=== PATIENT | female | born 1945 | race Asian ===

== ENCOUNTER 2019-08-17 22:38 | Emergency (ER) | payer OTHER ==
[~2019-08-17] VITALS: Ht 162.6 cm; Wt 55.3 kg
[2019-08-17 22:48] VITALS: Ht 162.6 cm; Wt 55.3 kg
[2019-08-17 23:37] VITALS: BP 166/61
[2019-08-18 00:25] LABS: UA SPECIFIC GRAVITY <=1.005 (1.005-1.035); microscopic required? YES; urine erythrocyte 2+ (NEGATIVE)
== END 2019-08-17 23:37 | disposition home or self-care (01) ==
LOC: ED 22:38
PROVIDERS: Specialist
DX: N39.0 Urinary tract infection, site not specified (principal); I10 Essential (primary) hypertension; E11.9 Type 2 diabetes mellitus without complications; Z90.710 Acquired absence of both cervix and uterus; Z98.890 Other specified postprocedural states

== ENCOUNTER 2020-06-04 21:46 | Emergency (ER) | payer OTHER ==
[~2020-06-04] VITALS: Ht 160 cm; Wt 54.1 kg
[2020-06-04 22:11] VITALS: Ht 160 cm; Wt 54.1 kg
[2020-06-04 22:52] LABS: microscopic required? YES; urine erythrocyte 3+ (NEGATIVE)
[2020-06-04 23:23] VITALS: BP 134/72
== END 2020-06-04 23:17 | disposition home or self-care (01) ==
LOC: ED 21:46
PROVIDERS: Specialist
DX: N39.0 Urinary tract infection, site not specified (principal); I10 Essential (primary) hypertension; E11.9 Type 2 diabetes mellitus without complications

== ENCOUNTER 2020-06-10 23:55 | Emergency (ER) | payer OTHER ==
[~2020-06-10] VITALS: Ht 167.6 cm; Wt 54.0 kg
[2020-06-11 00:25] VITALS: Ht 167.6 cm; Wt 54.0 kg
[2020-06-11 03:19] LABS: BASOPHIL % 0.7 % (0-2); PLATELET COUNT 340 x10^3mcL (130-400); RED CELL DISTRIBUTION WIDTH 13.4 % (11.5-14.5)
[2020-06-11 04:00] LABS: CHLORIDE SERUM 103 mmol/L (98-107); CREATININE SERUM 0.7 mg/dL (0.6-1.0); GLUCOSE SERUM 107 mg/dL (74-106); POTASSIUM SERUM 4.4 mmol/L (3.5-5.1); SODIUM SERUM 137 mmol/L (136-145)
[2020-06-11 04:19] VITALS: BP 116/52
== END 2020-06-11 04:19 | disposition home or self-care (01) ==
LOC: ED 23:55
PROVIDERS: Emergency Medicine
DX: N39.0 Urinary tract infection, site not specified (principal); I10 Essential (primary) hypertension; E11.9 Type 2 diabetes mellitus without complications